=== PATIENT | female | born 1955 | race American Indian/Alaskan Native ===

== ENCOUNTER 2017-06-26 23:00 | Emergency (ER) | payer MEDICARE ==
[2017-06-26] MEDS ORDERED: XYLOCAINE TOPICAL 4% TP ONE (23:38)
[2017-06-26] MEDS ORDERED: AFRIN NS ONE (23:38)
--- NOTE | 2017-06-26 23:38 | Emergency Department Report ---
ED ENT HPI - General Chief complaint: Nosebleed Stated complaint: NOSE BLEED Time Seen by Provider: 06/26/17 23:29 Source: patient, EMS (ems notes not available at time of chart dictation), RN notes reviewed, old records reviewed Mode of arrival: Stretcher Limitations: No Limitations - History of Present Illness Initial comments: This is a 61-year-old female. She is previously unknown to me. Past medical history includes COPD, home oxygen dependent, congestive heart failure, DVT, chronic back pain, fibromyalgia, on chronic systemic anticoagulation ( xarelto). The patient presents to the ER with complaint of painless right-sided epistaxis. No headache, neck pain, chest pain, abdominal pain. Patient reports chronic shortness of breath which is another new, worsening or different. There is no trauma, and the patient denies cocaine use. MD complaint: epistaxis -: Gradual Location: nose Severity: moderate Consistency: constant Improves with: none Worsens with: none Context-Epistaxis: other - Related Data Home Medications Medication Instructions Recorded Confirmed Last Taken Amlodipine Besylate [Norvasc] 10 mg PO QHS 06/08/15 03/28/17 03/27/17 Cyanocobalamin (Vitamin B-12) 1,000 mcg PO QDAY 06/08/15 03/28/17 03/27/17 [Vitamin B-12] Esomeprazole Magnesium [NexIUM] 40 mg PO QDAY 06/08/15 03/28/17 03/27/17 Sucralfate [Carafate] 1 gm PO BID 06/08/15 03/28/17 03/27/17 Tadalafil (Nf) [Adcirca (Nf)] 40 mg PO QDAY 02/25/16 03/29/17 03/27/17 Furosemide [Lasix TAB] 40 mg PO QDAY 06/26/16 03/28/17 03/27/17 Rivaroxaban [Xarelto] 15 mg PO DAILY 06/26/16 03/28/17 03/27/17 traMADol [Ultram 50 MG tab] 50 mg PO Q6HR PRN 06/26/16 03/28/17 03/27/17 Duloxetine HCl [Cymbalta] 60 mg PO DAILY 03/28/17 03/28/17 03/27/17 Potassium Chloride [K-Dur] 20 meq PO QDAY 03/28/17 03/28/17 03/27/17 Previous Rx's Medication Instructions Recorded Last Taken Type Cyclobenzaprine HCl [Flexeril 5 MG 5 mg PO TID #20 tab 06/24/16 03/27/17 Rx TAB] Azithromycin [Zithromax TAB] 500 mg PO QDAY #7 tablet 04/01/17 Unknown Rx predniSONE [Deltasone] 10 mg PO .TAPER #48 tab 04/01/17 Unknown Rx Fluticasone [Flonase] 1 spray NS QDAY #1 bottle 06/27/17 Unknown Rx Oxymetazoline 0.05% [Afrin] 0 spray NS BID #1 bottle 06/27/17 Unknown Rx Allergies Allergy/AdvReac Type Severity Reaction Status Date / Time codeine Allergy Hives Verified 06/08/15 00:27 Sulfa (Sulfonamide Allergy Hives Verified 06/08/15 00:27 Antibiotics) ED Dental HPI - General Chief complaint: Nosebleed Stated complaint: NOSE BLEED Time Seen by Provider: 06/26/17 23:29 Source: patient, EMS Mode of arrival: Stretcher Limitations: No Limitations - Related Data Home Medications Medication Instructions Recorded Confirmed Last Taken Amlodipine Besylate [Norvasc] 10 mg PO QHS 06/08/15 03/28/17 03/27/17 Cyanocobalamin (Vitamin B-12) 1,000 mcg PO QDAY 06/08/15 03/28/17 03/27/17 [Vitamin B-12] Esomeprazole Magnesium [NexIUM] 40 mg PO QDAY 06/08/15 03/28/17 03/27/17 Sucralfate [Carafate] 1 gm PO BID 06/08/15 03/28/17 03/27/17 Tadalafil (Nf) [Adcirca (Nf)] 40 mg PO QDAY 02/25/16 03/29/17 03/27/17 Furosemide [Lasix TAB] 40 mg PO QDAY 06/26/16 03/28/17 03/27/17 Rivaroxaban [Xarelto] 15 mg PO DAILY 06/26/16 03/28/17 03/27/17 traMADol [Ultram 50 MG tab] 50 mg PO Q6HR PRN 06/26/16 03/28/17 03/27/17 Duloxetine HCl [Cymbalta] 60 mg PO DAILY 03/28/17 03/28/17 03/27/17 Potassium Chloride [K-Dur] 20 meq PO QDAY 03/28/17 03/28/17 03/27/17 Previous Rx's Medication Instructions Recorded Last Taken Type Cyclobenzaprine HCl [Flexeril 5 MG 5 mg PO TID #20 tab 06/24/16 03/27/17 Rx TAB] Azithromycin [Zithromax TAB] 500 mg PO QDAY #7 tablet 04/01/17 Unknown Rx predniSONE [Deltasone] 10 mg PO .TAPER #48 tab 04/01/17 Unknown Rx Fluticasone [Flonase] 1 spray NS QDAY #1 bottle 06/27/17 Unknown Rx Oxymetazoline 0.05% [Afrin] 0 spray NS BID #1 bottle 06/27/17 Unknown Rx Allergies Allergy/AdvReac Type Severity Reaction Status Date / Time codeine Allergy Hives Verified 06/08/15 00:27 Sulfa (Sulfonamide Allergy Hives Verified 06/08/15 00:27 Antibiotics) ED Review of Systems ROS: Stated complaint: NOSE BLEED Other details as noted in HPI Constitutional: denies: fever, malaise Eyes: denies: vision change ENT: epistaxis Respiratory: shortness of breath (chronic shortness of breath). denies: cough Cardiovascular: denies: chest pain Gastrointestinal: denies: abdominal pain Genitourinary: denies: urgency, dysuria Musculoskeletal: back pain (chronic back pain) Skin: denies: rash Psychiatric: anxiety ED Past Medical Hx - Past Medical History Previous Medical History?: Yes Hx Hypertension: Yes Hx Congestive Heart Failure: Yes Hx Diabetes: No Hx Deep Vein Thrombosis: Yes (x7) Hx GERD: Yes Hx Arthritis: Yes Hx Psychiatric Treatment: Yes (DEPRESSION) Hx Asthma: Yes Hx COPD: Yes Hx HIV: No Additional medical history: PULMONARY HYPERTENSION. IBS. FIBROMYALGIA. SYSTOLIC HEART FAILURE. HERNIATED DISC, WEARS 3L HOME O2 - Surgical History Past Surgical History?: Yes Hx Cholecystectomy: Yes Additional Surgical History: HYSTERECTOMY, TONSILLECTOMY, ABD EXPLORATORY SURGERY, HYSTER, D&C, RIGHT KNEE REPLACEMENT, RIGHT THIRD FINGER SURGERY, BILATERAL EYE SURGERY, LEFT SHOULDER, RIGHT WRSIT SURGERY X 2. 6 ORTHOSCOPIC SURGERIES TO RIGHT KNEE, ESOPHAGEAL SURGERY X 2. FILTER, POWER PORT. - Social History Smoking Status: Never Smoker Substance Use Type: None - Medications Home Medications: Home Medications Medication Instructions Recorded Confirmed Last Taken Type Amlodipine Besylate [Norvasc] 10 mg PO QHS 06/08/15 03/28/17 03/27/17 History Cyanocobalamin (Vitamin B-12) 1,000 mcg PO QDAY 06/08/15 03/28/17 03/27/17 History [Vitamin B-12] Esomeprazole Magnesium [NexIUM] 40 mg PO QDAY 06/08/15 03/28/17 03/27/17 History Sucralfate [Carafate] 1 gm PO BID 06/08/15 03/28/17 03/27/17 History Tadalafil (Nf) [Adcirca (Nf)] 40 mg PO QDAY 02/25/16 03/29/17 03/27/17 History Cyclobenzaprine HCl [Flexeril 5 MG 5 mg PO TID #20 tab 06/24/16 03/28/17 Rx TAB] Furosemide [Lasix TAB] 40 mg PO QDAY 06/26/16 03/28/17 03/27/17 History Rivaroxaban [Xarelto] 15 mg PO DAILY 06/26/16 03/28/17 03/27/17 History traMADol [Ultram 50 MG tab] 50 mg PO Q6HR PRN 06/26/16 03/28/17 03/27/17 History Duloxetine HCl [Cymbalta] 60 mg PO DAILY 03/28/17 03/28/17 03/27/17 History Potassium Chloride [K-Dur] 20 meq PO QDAY 03/28/17 03/28/17 03/27/17 History Azithromycin [Zithromax TAB] 500 mg PO QDAY #7 tablet 04/01/17 Unknown Rx predniSONE [Deltasone] 10 mg PO .TAPER #48 tab 04/01/17 Unknown Rx Fluticasone [Flonase] 1 spray NS QDAY #1 bottle 06/27/17 Unknown Rx Oxymetazoline 0.05% [Afrin] 0 spray NS BID #1 bottle 06/27/17 Unknown Rx ED Physical Exam - General Limitations: No Limitations General appearance: alert, in no apparent distress - Head Head exam: Present: atraumatic, normocephalic - Eye Eye exam: Present: normal appearance, PERRL, EOMI. Absent: nystagmus - ENT ENT exam: Present: normal exam, normal orophraynx, mucous membranes moist, normal external ear exam, other (patient has active bleeding from the right nostril. No obvious source is localized.) - Neck Neck exam: Present: normal inspection, full ROM - Respiratory Respiratory exam: Present: normal lung sounds bilaterally. Absent: respiratory distress, wheezes, rales, rhonchi, stridor, chest wall tenderness, accessory muscle use, decreased breath sounds, prolonged expiratory - Cardiovascular Cardiovascular Exam: Present: normal rhythm, tachycardia, normal heart sounds. Absent: systolic murmur, diastolic murmur, rubs, gallop - GI/Abdominal GI/Abdominal exam: Present: soft, normal bowel sounds. Absent: distended, tenderness, guarding, rebound, rigid, pulsatile mass - Extremities Exam Extremities exam: Present: normal inspection, full ROM, normal capillary refill , pedal edema. Absent: calf tenderness - Back Exam Back exam: Present: normal inspection, full ROM. Absent: tenderness, CVA tenderness (R), CVA tenderness (L), muscle spasm, paraspinal tenderness, vertebral tenderness - Neurological Exam Neurological exam: Present: alert, oriented X3, normal gait, other (Extraocular movements intact. Tongue midline. No facial droop. Facial sensation intact to light touch in the V1, V2, V3 distribution bilaterally. 5 and 5 strength in 4 extremities.. Sensation is intact to light touch in 4 extremities.). Absent : motor sensory deficit - Psychiatric Psychiatric exam: Present: normal affect, normal mood - Skin Skin exam: Present: warm, dry, intact, normal color. Absent: rash ED Course Vital Signs 06/26/17 06/26/17 23:16 23:30 Temperature 98.4 F Pulse Rate 113 H Respiratory 20 18 Rate Blood Pressure 146/95 [Left] O2 Sat by Pulse 97 100 Oximetry - Reevaluation(s) Reevaluation #1: 06/27/17 01:16 Patient began to rebleed, and I recommended nasal packing. The patient is adamantly refusing nasal packing. The patient is alert and oriented 3, and exhibits decision-making capacity. She prefers to be discharged with tongue depressor device, nasal pledgets, and Afrin. She understands that she can return to the ER right away if and when she changes her mind. ED Medical Decision Making - Lab Data Vital Signs 06/26/17 06/26/17 23:16 23:30 Temperature 98.4 F Pulse Rate 113 H Respiratory 20 18 Rate Blood Pressure 146/95 [Left] O2 Sat by Pulse 97 100 Oximetry - Medical Decision Making Differential diagnosis: Epistaxis secondary to medication use Assessment and plan: 61-year-old female with epistaxis. The patient is given a tongue depressor direct application device, and the patient has 2 by twos soaked and 4% lidocaine, which had been inserted into the nostrils. The patient is observed for approximately 45 minutes, and her bleeding resolves. She is also given Afrin. At this point in time, the patient's bleeding has resolved and she is quite comfortable. She walks with a steady gait, and is slightly anxious. She is minimally tachycardic. She will be discharged at this time. She is instructed that nasal bleed will most likely resumed. Critical care attestation.: If time is entered above; I have spent that time in minutes in the direct care of this critically ill patient, excluding procedure time. ED Disposition Clinical Impression: Nasal bleeding Disposition: DC/TX-70 ANOTHER TYPE HLTHCARE Is pt being admited?: No Does the pt Need Aspirin: No Condition: Stable Instructions: Epistaxis (ED) Additional Instructions: Discontinue anticoagulation for the next 48 hours. Use the medications otherwise as directed. Please return to the ER right away if and when symptoms change. Nasal bleeding is likely to reoccur. If and when it recurs, place Afrin inside nostril, and apply one to 2 sprays per nostril. Afrin can be used every 12 hours, for 3 days maximum. Do not use more than directed. If and when nasal bleeding reoccurs, apply direct pressure to the nostrils, using the tongue depressor device. If these interventions did not improve bleeding, please return to the ER right away. Return to the ER right away with fevers, chills, chest pain, shortness of breath, intractable nausea or vomiting, inability to tolerate liquid feeds, confusion. Prescriptions: Fluticasone [Flonase] 1 spray NS QDAY #1 bottle Oxymetazoline 0.05% [Afrin] 0 spray NS BID #1 bottle Referrals: TRINITY JUÁREZ MD [Staff Physician] - 3-5 Days
[2017-06-27 06:56] VITALS: BP 104/57
== END 2017-06-27 03:40 | disposition other institution (70) ==
LOC: ED 23:00
DX: R04.0 Epistaxis (principal); J44.9 Chronic obstructive pulmonary disease, unspecified; I50.9 Heart failure, unspecified; I82.409 Acute embolism and thrombosis of unspecified deep veins of unspecified lower extremity; G89.29 Other chronic pain; I10 Essential (primary) hypertension; K21.9 Gastro-esophageal reflux disease without esophagitis; Z88.2 Allergy status to sulfonamides; Z88.5 Allergy status to narcotic agent
CPT/HCPCS: 99283

== ENCOUNTER 2017-11-01 07:58 | Emergency (ER) | payer MEDICARE ==
[2017-11-01 08:06] VITALS: BP 140/80
[2017-11-01] MEDS ORDERED: NORCO 5/325 PO ONE (10:44)
--- NOTE | 2017-11-01 10:46 | Emergency Department Report ---
ED Neck Pain/Injury HPI - General Chief Complaint: Pain General Stated Complaint: NECK/SHOULDER PAIN Time Seen by Provider: 11/01/17 10:43 Mode of arrival: Ambulatory Limitations: No Limitations - History of Present Illness Initial Comments: 62-year-old female past medical history multiple medical problems presents with complaint of acute on chronic left shoulder and left sided lateral neck pain. Patient denies any falls denies any recent trauma. States she sees pain management for this issue. States she was in the ER waiting for a family member to be assessed and treated and did not have her pain medicine which is why she registered to be seen. States that she takes pain medicine on a daily basis and has not taken her pain medicine today. Denies any new symptoms whatsoever denies chest pain fever chills cough palpitations. Patient is awake alert and oriented 3 accompanied by family member at bedside MD Complaint: neck pain Onset/Timin -: week(s) Place: home, work Radiation: left shoulder Severity: moderate Quality: aching Consistency: intermittent Improves With: immobilization Worsens With: movement of extremity, movement of neck Treatments Prior to Arrival: none - Related Data Home Medications Medication Instructions Recorded Confirmed Last Taken Amlodipine Besylate [Norvasc] 10 mg PO QHS 06/08/15 03/28/17 03/27/17 Cyanocobalamin (Vitamin B-12) 1,000 mcg PO QDAY 06/08/15 03/28/17 03/27/17 [Vitamin B-12] Esomeprazole Magnesium [NexIUM] 40 mg PO QDAY 06/08/15 03/28/17 03/27/17 Sucralfate [Carafate] 1 gm PO BID 06/08/15 03/28/17 03/27/17 Tadalafil (Nf) [Adcirca (Nf)] 40 mg PO QDAY 02/25/16 03/29/17 03/27/17 Furosemide [Lasix TAB] 40 mg PO QDAY 06/26/16 03/28/17 03/27/17 Rivaroxaban [Xarelto] 15 mg PO DAILY 06/26/16 03/28/17 03/27/17 traMADol [Ultram 50 MG tab] 50 mg PO Q6HR PRN 06/26/16 03/28/17 03/27/17 Duloxetine HCl [Cymbalta] 60 mg PO DAILY 03/28/17 03/28/17 03/27/17 Potassium Chloride [K-Dur] 20 meq PO QDAY 03/28/17 03/28/17 03/27/17 Previous Rx's Medication Instructions Recorded Last Taken Type Cyclobenzaprine HCl [Flexeril 5 MG 5 mg PO TID #20 tab 06/24/16 03/27/17 Rx TAB] Azithromycin [Zithromax TAB] 500 mg PO QDAY #7 tablet 04/01/17 Unknown Rx predniSONE [Deltasone] 10 mg PO .TAPER #48 tab 04/01/17 Unknown Rx Fluticasone [Flonase] 1 spray NS QDAY #1 bottle 06/27/17 Unknown Rx Oxymetazoline 0.05% [Afrin] 0 spray NS BID #1 bottle 06/27/17 Unknown Rx Acetaminophen [Acetaminophen TAB] 500 mg PO Q6HR PRN #20 tablet 11/01/17 Unknown Rx traMADol [Ultram 50 MG tab] 50 mg PO Q6HR PRN #6 tablet 11/01/17 Unknown Rx Allergies Allergy/AdvReac Type Severity Reaction Status Date / Time codeine Allergy Hives Verified 06/08/15 00:27 Sulfa (Sulfonamide Allergy Hives Verified 06/08/15 00:27 Antibiotics) ED Review of Systems ROS: Stated complaint: NECK/SHOULDER PAIN Other details as noted in HPI Constitutional: denies: chills, fever Eyes: denies: eye pain, eye discharge, vision change ENT: denies: ear pain, throat pain Respiratory: denies: cough, shortness of breath, wheezing Cardiovascular: as per HPI. denies: chest pain, palpitations Endocrine: no symptoms reported Gastrointestinal: denies: abdominal pain, nausea, diarrhea Genitourinary: denies: urgency, dysuria, discharge Musculoskeletal: as per HPI (chronic neck pain). denies: back pain, joint swelling, arthralgia Skin: as per HPI. denies: rash, lesions Neurological: denies: headache, weakness, paresthesias Psychiatric: denies: anxiety, depression Hematological/Lymphatic: denies: easy bleeding, easy bruising ED Past Medical Hx - Past Medical History Hx Hypertension: Yes Hx Congestive Heart Failure: Yes Hx Diabetes: No Hx Deep Vein Thrombosis: Yes (x7) Hx GERD: Yes Hx Arthritis: Yes Hx Psychiatric Treatment: Yes (DEPRESSION) Hx Asthma: Yes Hx COPD: Yes Hx HIV: No Additional medical history: PULMONARY HYPERTENSION. IBS. FIBROMYALGIA. SYSTOLIC HEART FAILURE. HERNIATED DISC, WEARS 3L HOME O2 - Surgical History Hx Cholecystectomy: Yes Additional Surgical History: HYSTERECTOMY, TONSILLECTOMY, ABD EXPLORATORY SURGERY, HYSTER, D&C, RIGHT KNEE REPLACEMENT, RIGHT THIRD FINGER SURGERY, BILATERAL EYE SURGERY, LEFT SHOULDER, RIGHT WRSIT SURGERY X 2. 6 ORTHOSCOPIC SURGERIES TO RIGHT KNEE, ESOPHAGEAL SURGERY X 2. FILTER, POWER PORT. - Social History Smoking Status: Never Smoker Substance Use Type: None - Medications Home Medications: Home Medications Medication Instructions Recorded Confirmed Last Taken Type Amlodipine Besylate [Norvasc] 10 mg PO QHS 06/08/15 03/28/17 03/27/17 History Cyanocobalamin (Vitamin B-12) 1,000 mcg PO QDAY 06/08/15 03/28/17 03/27/17 History [Vitamin B-12] Esomeprazole Magnesium [NexIUM] 40 mg PO QDAY 06/08/15 03/28/17 03/27/17 History Sucralfate [Carafate] 1 gm PO BID 06/08/15 03/28/17 03/27/17 History Tadalafil (Nf) [Adcirca (Nf)] 40 mg PO QDAY 02/25/16 03/29/17 03/27/17 History Cyclobenzaprine HCl [Flexeril 5 MG 5 mg PO TID #20 tab 06/24/16 03/28/17 Rx TAB] Furosemide [Lasix TAB] 40 mg PO QDAY 06/26/16 03/28/17 03/27/17 History Rivaroxaban [Xarelto] 15 mg PO DAILY 06/26/16 03/28/17 03/27/17 History traMADol [Ultram 50 MG tab] 50 mg PO Q6HR PRN 06/26/16 03/28/17 03/27/17 History Duloxetine HCl [Cymbalta] 60 mg PO DAILY 03/28/17 03/28/17 03/27/17 History Potassium Chloride [K-Dur] 20 meq PO QDAY 03/28/17 03/28/17 03/27/17 History Azithromycin [Zithromax TAB] 500 mg PO QDAY #7 tablet 04/01/17 Unknown Rx predniSONE [Deltasone] 10 mg PO .TAPER #48 tab 04/01/17 Unknown Rx Fluticasone [Flonase] 1 spray NS QDAY #1 bottle 06/27/17 Unknown Rx Oxymetazoline 0.05% [Afrin] 0 spray NS BID #1 bottle 06/27/17 Unknown Rx Acetaminophen [Acetaminophen TAB] 500 mg PO Q6HR PRN #20 tablet 11/01/17 Unknown Rx traMADol [Ultram 50 MG tab] 50 mg PO Q6HR PRN #6 tablet 11/01/17 Unknown Rx ED Physical Exam - General Limitations: No Limitations General appearance: alert, in no apparent distress - Head Head exam: Present: atraumatic, normocephalic - Eye Eye exam: Present: normal appearance, PERRL, EOMI Pupils: Present: normal accommodation - ENT ENT exam: Present: mucous membranes moist - Neck Neck exam: Present: normal inspection, full ROM (patient is able to range her neck X flex extend and laterally rotate laterally flex although she states it is somewhat painful when she flexes to the left) - Respiratory Respiratory exam: Present: normal lung sounds bilaterally. Absent: respiratory distress - Cardiovascular Cardiovascular Exam: Present: regular rate, normal rhythm. Absent: systolic murmur, diastolic murmur, rubs, gallop - GI/Abdominal GI/Abdominal exam: Present: soft, normal bowel sounds - Extremities Exam Extremities exam: Present: normal inspection - Back Exam Back exam: Present: normal inspection - Neurological Exam Neurological exam: Present: alert, oriented X3, CN II-XII intact, normal gait - Psychiatric Psychiatric exam: Present: normal affect, normal mood - Skin Skin exam: Present: warm, dry, intact, normal color. Absent: rash ED Course Vital Signs 11/01/17 08:03 Temperature 98 F Pulse Rate 73 Respiratory 20 Rate Blood Pressure 140/80 O2 Sat by Pulse 99 Oximetry ED Medical Decision Making - Medical Decision Making A/P: Chronic neck pain 1-patient to follow up with primary care has no clinical neurological deficits on exam 2-pain significantly decreased 3-imaging consistent with degenerative musculoskeletal disease Critical care attestation.: If time is entered above; I have spent that time in minutes in the direct care of this critically ill patient, excluding procedure time. ED Disposition Clinical Impression: Cervical radiculopathy, Neck pain Disposition: DC-01 TO HOME OR SELFCARE Is pt being admited?: No Does the pt Need Aspirin: No Condition: Stable Instructions: Osteoarthritis (ED), Chronic Pain (ED), Arthralgia (ED), Degenerative Disc Disease (ED) Prescriptions: Acetaminophen [Acetaminophen TAB] 500 mg PO Q6HR PRN #20 tablet PRN Reason: Pain traMADol [Ultram 50 MG tab] 50 mg PO Q6HR PRN #6 tablet PRN Reason: Pain Referrals: [facility] [Outside] - 3-5 Days Time of Disposition: 11:51
--- NOTE | 2017-11-01 12:15 | XRay Report ---
CERVICAL SPINE, 3 views: History: Neck pain. Findings: The vertebral bodies, disk spaces, posterior elements and prevertebral soft tissues are intact. The dens is intact. No acute fracture or malalignment is identified. Moderate degenerative disc disease is noted at C4-5 and C5-6. There is straightening of the normal lordosis. Impression: Cervical spondylosis.
--- NOTE | 2017-11-01 12:16 | XRay Report ---
LEFT SHOULDER, 3 views: History: Chronic left shoulder pain. There is widening of the left a.c. joint which measures up to 1.2 cm in width. This suggests ligamentous injury or chronic trauma. No acute fracture or dislocation. No advance joint pathology. The soft tissues are within normal limits. IMPRESSION: Left a.c. joint abnormality as described. Please correlate with the patient's history.
== END 2017-11-01 12:00 | disposition home or self-care (01) ==
LOC: ED 07:58
DX: M54.12 Radiculopathy, cervical region (principal); K21.9 Gastro-esophageal reflux disease without esophagitis; I11.0 Hypertensive heart disease with heart failure; I50.9 Heart failure, unspecified; M19.90 Unspecified osteoarthritis, unspecified site; F32.9 Major depressive disorder, single episode, unspecified; J44.9 Chronic obstructive pulmonary disease, unspecified; K58.9 Irritable bowel syndrome, unspecified; M79.7 Fibromyalgia; Z86.718 Personal history of other venous thrombosis and embolism; Z99.81 Dependence on supplemental oxygen; Z90.89 Acquired absence of other organs; Z90.710 Acquired absence of both cervix and uterus; Z88.2 Allergy status to sulfonamides; Z88.5 Allergy status to narcotic agent
CPT/HCPCS: 72040; 99283

== ENCOUNTER 2019-12-23 16:42 | Emergency (ER) | payer MEDICARE ==
--- NOTE | 2019-12-23 18:53 | Emergency Department Report ---
HPI - General Chief Complaint: Extremity Injury, Lower Time Seen by Provider: 12/23/19 18:35 - HPI HPI: Room 40 The patient is a 64-year-old female present with a chief complaint of right hip pain. The patient states she was diagnosed with avascular necrosis of the right hip 1 year ago. The patient states over the past week the pain is been so severe she has been unable to get up and move around her home to take care of her activities of daily living. As a consequence the patient has been urinating on herself and reeks of urine. There is been no new trauma. ED Past Medical Hx - Past Medical History Previous Medical History?: Yes Hx Hypertension: Yes Hx Congestive Heart Failure: Yes Hx Deep Vein Thrombosis: Yes (x7) Hx GERD: Yes Hx Arthritis: Yes Hx Psychiatric Treatment: Yes (DEPRESSION) Hx Asthma: Yes Hx COPD: Yes Additional medical history: PULMONARY HYPERTENSION. IBS. FIBROMYALGIA. SYSTOLIC HEART FAILURE. HERNIATED DISC, WEARS 3L HOME O2 - Surgical History Past Surgical History?: Yes Hx Cholecystectomy: Yes Additional Surgical History: HYSTERECTOMY, TONSILLECTOMY, ABD EXPLORATORY SURGERY, HYSTER, D&C, RIGHT KNEE REPLACEMENT, RIGHT THIRD FINGER SURGERY, BILATERAL EYE SURGERY, LEFT SHOULDER, RIGHT WRSIT SURGERY X 2. 6 ORTHOSCOPIC SURGERIES TO RIGHT KNEE, ESOPHAGEAL SURGERY X 2. FILTER, POWER PORT. - Family History Family history: no significant - Social History Smoking Status: Never Smoker Substance Use Type: None - Medications Home Medications: Home Medications Medication Instructions Recorded Confirmed Last Taken Type Amlodipine Besylate [Norvasc] 10 mg PO QHS 06/08/15 03/28/17 03/27/17 History Cyanocobalamin (Vitamin B-12) 1,000 mcg PO QDAY 06/08/15 03/28/17 03/27/17 History [Vitamin B-12] Esomeprazole Magnesium [NexIUM] 40 mg PO QDAY 06/08/15 03/28/17 03/27/17 History Sucralfate [Carafate] 1 gm PO BID 06/08/15 03/28/17 03/27/17 History Tadalafil (Nf) [Adcirca (Nf)] 40 mg PO QDAY 02/25/16 03/29/17 03/27/17 History 40 mg Cyclobenzaprine HCl [Flexeril 5 MG 5 mg PO TID #20 tab 06/24/16 03/28/17 03/27/17 Rx TAB] Furosemide [Lasix TAB] 40 mg PO QDAY 06/26/16 03/28/17 03/27/17 History Rivaroxaban [Xarelto] 15 mg PO DAILY 06/26/16 03/28/17 03/27/17 History traMADoL [Ultram 50 MG tab] 50 mg PO Q6HR PRN 06/26/16 03/28/17 03/27/17 History Duloxetine HCl [Cymbalta] 60 mg PO DAILY 03/28/17 03/28/17 03/27/17 History Potassium Chloride [K-Dur] 20 meq PO QDAY 03/28/17 03/28/17 03/27/17 History Azithromycin [Zithromax TAB] 500 mg PO QDAY #7 tablet 04/01/17 Unknown Rx predniSONE [Deltasone] 10 mg PO .TAPER #48 tab 04/01/17 Unknown Rx Fluticasone [Flonase] 1 spray NS QDAY #1 bottle 06/27/17 Unknown Rx Oxymetazoline 0.05% [Afrin] 0 spray NS BID #1 bottle 06/27/17 Unknown Rx Acetaminophen [Acetaminophen TAB] 500 mg PO Q6HR PRN #20 tablet 11/01/17 Unknown Rx traMADoL [Ultram 50 MG tab] 50 mg PO Q6HR PRN #6 tablet 11/01/17 Unknown Rx ED Review of Systems ROS: Stated complaint: HIP PAIN Other details as noted in HPI Musculoskeletal: arthralgia Physical Exam - Physical Exam Vital Signs: Vital Signs 12/23/19 12/23/19 12/23/19 17:00 22:18 23:18 Temperature 99.1 F Pulse Rate 91 H Respiratory 24 20 20 Rate Blood Pressure 170/86 [Left] O2 Sat by Pulse 94 Oximetry 12/24/19 02:00 Temperature 97.9 F Pulse Rate 76 Respiratory 20 Rate Blood Pressure 148/79 [Left] O2 Sat by Pulse 96 Oximetry Physical Exam: GENERAL: The patient is well-developed well-nourished female lying on stretcher strong odor of urine present in the room. [] HEENT: Normocephalic. Atraumatic. Extraocular motions are intact. Patient has moist mucous membranes. NECK: Supple. Trachea midline CHEST/LUNGS: There is no respiratory distress noted. HEART/CARDIOVASCULAR: Regular. There is no tachycardia. 2+ right DP SKIN: There is no rash. There is no edema. There is no diaphoresis. NEURO: The patient is awake, alert, and oriented. The patient is cooperative. The patient has normal speech MUSCULOSKELETAL: There is pain in the right hip with range of motion. There is no evidence of acute injury. ED Medical Decision Making - Radiology Data Radiology results: report reviewed (Right hip x-ray), image reviewed (Right hip x-ray) interpreted by me: Right hip x-ray-no acute fracture seen Findings [facility] [address] [place] [address] XRa y Report Signed Patient: TRINITY CERVANTES MR#: [id number] : 1955 Acct:[id number] Age/Sex: 64 / F ADM Date: 12/23/19 Loc: ED Attending Dr: Ordering Physician: SHANNAN LOMELI MD Date of Service: 12/23/19 Procedure(s): XR hip 2-3V RT Accession Number(s): [id number] cc: SHANNAN LOMELI MD Fluoro Time In Minutes: RIGHT HIP 3 VIEWS INDICATION / CLINICAL INFORMATION: Right hip pain. History of AVN COMPARISON: None available. FINDINGS: BONES / JOINT(S): There is evidence of prior core decompression centered at the level of the left femoral neck. The hip and SI joint spaces are well-maintained. There is no evidence of fracture or dislocation. I see no evidence of avascular necrosis. SOFT TISSUES: There is a stent graft in the left hemipelvis. ADDITIONAL FINDINGS: None. Signer Name: Danilo Alarcon MD Signed: 12/23/2019 8:11 PM Workstation Name: [id number] Transcribed By: RT Dictated By: Danilo Alarcon MD Electronically Authenticated By: Danilo Alarcon MD Signed Date/Time: 12/23/192010 DD/ 08 TD/TT: - Differential Diagnosis Avascular necrosis of the right hip, chronic hip pain, Critical care attestation.: If time is entered above; I have spent that time in minutes in the direct care of this critically ill patient, excluding procedure time. ED Disposition Clinical Impression: Inability to perform activities of daily living, Right hip pain Disposition: DC/TX-70 ANOTHER TYPE HLTHCARE Is pt being admited?: No Does the pt Need Aspirin: No Condition: Stable Referrals: RUBÉN LAURA MD [Primary Care Provider] - 3-5 Days Time of Disposition: 21:02 (Awaiting case management)
--- NOTE | 2019-12-23 20:15 | XRay Report ---
RIGHT HIP 3 VIEWS INDICATION / CLINICAL INFORMATION: Right hip pain. History of AVN COMPARISON: None available. FINDINGS: BONES / JOINT(S): There is evidence of prior core decompression centered at the level of the left fem oral neck. The hip and SI joint spaces are well-maintained. There is no evidence of fracture or dislo cation. I see no evidence of avascular necrosis. SOFT TISSUES: There is a stent graft in the left hemipelvis. ADDITIONAL FINDINGS: None. Signer Name: Danilo Alarcon MD Signed: 12/23/2019 8:11 PM Workstation Name: [id number]
[2019-12-23] MEDS: CYCLOBENZAPRINE 10 MG TAB PO PRN (22:18)
[2019-12-23] MEDS: IBUPROFEN 800 MG TAB PO PRN (22:18)
[2019-12-24] MEDS: CYCLOBENZAPRINE 10 MG TAB PO PRN ×2 (07:19→16:21)
[2019-12-24] MEDS: IBUPROFEN 800 MG TAB PO PRN ×3 (07:19→21:18)
[2019-12-25] MEDS: IBUPROFEN 800 MG TAB PO PRN ×2 (07:46→17:05)
[2019-12-25] MEDS: CYCLOBENZAPRINE 10 MG TAB PO PRN ×2 (07:46→17:04)
[2019-12-26] MEDS: CYCLOBENZAPRINE 10 MG TAB PO PRN ×2 (04:08→11:32)
[2019-12-26] MEDS: IBUPROFEN 800 MG TAB PO PRN ×2 (04:08→11:31)
--- NOTE | 2019-12-26 10:03 | Emergency Department Report ---
Blank Doc - Documentation Documentation: Patient is still medically cleared at this time. Vital signs are within normal limits. Her only complaint is chronic hip pain. Patient is afebrile and denies any other complaints at this time.
[2019-12-26] MEDS ORDERED: ACETAMINOPHEN PO PRN (14:38)
[2019-12-26] MEDS ORDERED: OXYCODONE PO PRN (14:38)
[2019-12-26] MEDS ORDERED: NON-FORMULARY EACH (Plavix 75 MG) PO SCH (14:45)
[2019-12-26] MEDS: CLOPIDOGREL 75 MG TAB PO SCH (15:54)
[2019-12-26] MEDS: oxyCODONE 5 MG TAB PO PRN (20:51)
[2019-12-26] MEDS: oxyCODONE /ACETAMINOPHEN 5-325MG TAB PO PRN (20:51)
[2019-12-26] MEDS ORDERED: amLODIPine 10 MG TAB PO SCH (22:00)
[2019-12-26] MEDS ORDERED: NON-FORMULARY EACH (Amlodipine Besylate [Norvasc] 10 MG) PO SCH (22:00)
[2019-12-26] MEDS: TADALAFIL PO SCH (22:07)
[2019-12-27] MEDS: IBUPROFEN 800 MG TAB PO PRN (01:45)
[2019-12-27] MEDS: CYCLOBENZAPRINE 10 MG TAB PO PRN ×2 (01:45→09:34)
[2019-12-27] MEDS: oxyCODONE 5 MG TAB PO PRN (09:35)
[2019-12-27] MEDS: oxyCODONE /ACETAMINOPHEN 5-325MG TAB PO PRN (09:35)
[2019-12-27] MEDS: CLOPIDOGREL 75 MG TAB PO SCH (10:17)
[2019-12-27] MEDS: TADALAFIL PO SCH (10:18)
--- NOTE | 2019-12-27 16:41 | Emergency Department Report ---
Blank Doc - Documentation Documentation: Our social work team who is tried multiple attempts to get the patient placed in a nursing facility. Ultimately her friend is excepted responsibility of taking her to her home and helping to take care of her. Patient will be discharged.
[2019-12-27 19:07] VITALS: BP 118/56
== END 2019-12-27 19:06 | disposition home or self-care (01) ==
LOC: ED 16:42
DX: M25.551 Pain in right hip (principal); I11.0 Hypertensive heart disease with heart failure; I50.9 Heart failure, unspecified; K21.9 Gastro-esophageal reflux disease without esophagitis; M19.90 Unspecified osteoarthritis, unspecified site; F32.89 Other specified depressive episodes; J44.1 Chronic obstructive pulmonary disease with (acute) exacerbation; Z90.89 Acquired absence of other organs; Z90.710 Acquired absence of both cervix and uterus; Z98.890 Other specified postprocedural states; Z86.718 Personal history of other venous thrombosis and embolism; Z79.01 Long term (current) use of anticoagulants; Z88.6 Allergy status to analgesic agent; Z88.2 Allergy status to sulfonamides
CPT/HCPCS: 51702